=== PATIENT | female | born 1960 | race Two or more races ===

== ENCOUNTER 2018-07-17 16:50 | Emergency (ER) | payer BC ==
[~2018-07-17 16:50] MED LIST: ASPI81CH43 PO; FENO160T8 PO; LISI-646 PO; MET25T PO; METF1000 PO; PIOG1TAB37 OR
[2018-07-17 17:19] VITALS: BP 171/77
== END 2018-07-17 19:50 | disposition home or self-care (01) ==
LOC: ER 16:50
DX: R60.0 Localized edema (principal)
CPT/HCPCS: 73620